=== PATIENT | female | born 1930 | race American Indian/Alaskan Native ===

== ENCOUNTER 2018-12-05 09:39 | Outpatient (CLI) | payer MEDICARE | END 2018-12-05 09:40 | disposition home or self-care (01) | LOC: C.CARD 09:39 ==

== ENCOUNTER 2018-12-05 11:50 | Outpatient (CLI) | payer MEDICARE | END 2018-12-05 11:51 | disposition home or self-care (01) | LOC: C.MRIC 11:51 ==